=== PATIENT | male | born 1975 | race Caucasian/White ===

== ENCOUNTER 2020-01-11 16:03 | Emergency (ER) | payer BC ==
[~2020-01-11] VITALS: Ht 182.9 cm; Wt 59.1 kg
[~2020-01-11 16:03] MED LIST: EPI-PEN1 MG/ML MR; NO HOME MEDICATIONS; PREDNISONE20 MG PO
[2020-01-11 16:07] VITALS: TEMP 98.3
[2020-01-11] MEDS ORDERED: CLEOCIN HCL300 MG PO (16:13)
[2020-01-11 17:00] LABS: BASO # 0.1 (0.0-0.2); BASO % 0.5 % (0.0-2.0); EOS # 0.2 (0.0-0.7); EOS % 0.9 % (0-4.0); GRAN # 14.4 (1.4-6.5); GRAN % 84.2 % (42.2-75.2); HEMATOCRIT 45.7 % (42.0-52.0); HEMOGLOBIN 15.8 g/dl (13.5-18.0); MEAN CELL VOLUME 90 fl (80.0-100.0); MEAN CORPUSCULAR HEMOGLOBIN 31 pg (27.0-31.0); MEAN CORPUSCULAR HGB CONC 35 g/dl (33.0-37.0); MEAN PLATELET VOLUME 9.6 fl (7.4-10.4); MONO # 1.4 (0.1-0.6); MONO % 7.9 % (1.7-9.3); PLATELET COUNT 245 K/mm3 (130-400); RED BLOOD COUNT 5.07 M/mm3 (4.20-5.60); REDCELL DISTRIBUTION WIDTH-CV 11.9 % (11.5-14.5)
[2020-01-11 17:13] LABS: ALBUMIN 4.8 gm/dL (3.5-5.0); BILIRUBIN,TOTAL 1.1 mg/dL (0.0-1.0); C-REACTIVE PROTEIN 5.7 mg/dL (0.0-0.9); CALCIUM 10.2 mg/dL (8.4-10.2); CREATININE, serum 0.59 (0.66-1.25); POTASSIUM 4.1 mmol/L (3.4-5.0)
[2020-01-11] MEDS ORDERED: NORVASC 10MG10 MG PO (18:37)
[2020-01-11 18:38] VITALS: BP 165/102; PULSE 84
[2020-01-12] MEDS ORDERED: TOPROL XL 50MG50 MG PO (22:39)
== END 2020-01-11 18:54 | disposition home or self-care (01) ==
LOC: COL.ER 16:03
PROVIDERS: Emergency Medicine
DX: J03.90 Acute tonsillitis, unspecified (principal); I10 Essential (primary) hypertension; F17.210 Nicotine dependence, cigarettes, uncomplicated
CPT/HCPCS: J1100; J7030